=== PATIENT | male | born 1940 | race Hispanic/Latino ===

== ENCOUNTER 2017-01-03 22:32 | Observation (INO) | payer MEDICARE ==
--- NOTE | 2017-01-03 22:51 | ED PDOC ---
Arrival/HPI - General Time Seen by Provider: 01/03/17 22:35 Historian: Patient, Spouse - History of Present Illness Narrative History of Present Illness (Text): 01/03/17 22:51 Daniel Figueroa is a 76 year old male, whose past medical history includes prostate cancer, enlarged aorta, and hypertension, who presents to the Emergency department brought in by EMS accompanied by status post syncopal episode. As per , patient went to a restaurant for dinner tonight and had a syncopal episode after walking to the bathroom. notes patient was very drowsy when she arrived after. Patient states he is unable to remember the episode. Patient denies any chest pain, shortness of breath, nausea, vomiting, diarrhea, back pain, neck pain, headache, or any other complaints. notes patient has a history of syncopal episodes in the past. Time/Duration: Other Symptom Onset: Gradual Symptom Course: Unchanged Activities at Onset: Light Context: Standing, Other (Restaurant) Past Medical History - Provider Review Nursing Documentation Reviewed: Yes Family/Social History - Physician Review Nursing Documentation Reviewed: Yes Family/Social History: Unknown Family HX Allergies/Home Meds Allergies/Adverse Reactions: Allergies No Known Allergies Allergy (Unverified 01/03/17 22:54) Review of Systems - Physician Review All systems were reviewed & negative as marked: Yes - Review of Systems Constitutional: Normal. absent: Fevers Eyes: Normal ENT: Normal Respiratory: Normal. absent: SOB, Cough Cardiovascular: Syncope. absent: Chest Pain Gastrointestinal: Normal. absent: Abdominal Pain, Diarrhea, Nausea, Vomiting Genitourinary Male: Normal. absent: Dysuria, Frequency, Hematuria, Urinary Output Changes Musculoskeletal: Normal. absent: Back Pain, Neck Pain Skin: Normal Neurological: absent: Headache, Dizziness Endocrine: Normal Hemo/Lymphatic: Normal Psychiatric: Normal Physical Exam Vital Signs Reviewed: Yes Vital Signs Temp Pulse Resp BP Pulse Ox 01/03/17 23:59 66 20 127/63 98 01/03/17 22:56 97.7 F 63 18 105/62 94 L 01/03/17 22:47 64 28 H 105/62 92 L Temperature: Afebrile Blood Pressure: Normal Pulse: Regular Respiratory Rate: Normal Appearance: Positive for: Well-Appearing, Non-Toxic, Comfortable Pain Distress: None Mental Status: Positive for: other (Drowsy but easily arousable, oriented x 3) - Systems Exam Head: Present: Atraumatic, Normocephalic Pupils: Present: PERRL Extroacular Muscles: Present: EOMI Conjunctiva: Present: Normal Mouth: Present: Moist Mucous Membranes Neck: Present: Normal Range of Motion Respiratory/Chest: Present: Clear to Auscultation, Good Air Exchange. No: Respiratory Distress, Accessory Muscle Use Cardiovascular: Present: Regular Rate and Rhythm, Normal S1, S2. No: Murmurs Abdomen: Present: Normal Bowel Sounds. No: Tenderness, Distention, Peritoneal Signs Upper Extremity: Present: Normal Inspection. No: Cyanosis, Edema Lower Extremity: Present: Normal Inspection. No: Edema Neurological: Present: GCS=15, CN II-XII Intact, Speech Normal Skin: Present: Warm, Dry, Normal Color. No: Rashes Psychiatric: Present: Oriented x 3, Other (Drowsy but easily arousable) Medical Decision Making ED Course and Treatment: 01/03/17 22:51 Impression: 76 year old male brought in by EMS s/p syncopal episode tonight. Differential Diagnosis included but are not limited to: syncope Plan: -- CT Head w/o contrast -- EKG -- Chest X-ray -- Labs, alcohol level, cardiac enzymes -- Reassess and disposition Progress Notes: Reviewed EKG, NSR at 60 bpm. Inferior infarct. Anteroseptal infarct. No previous EKG available for comparison. 01/03/17 23:28 Reviewed Chest X-ray, shows no acute processes. 01/03/17 23:[address] head, shows: There is atrophy. No intracranial hemorrhage. No intracranial edema. No evidence of infarct. There is partial opacification of the ethmoid sinuses. It could be chronic or alternatively represent acute sinusitis. Clinical correlation is recommended. IMPRESSION: Sinus disease. 01/04/17 00:[address] Andres, covering for Dr. Conde, who is aware and agrees with plan. Pt will go to Telemetry observation for syncope under Dr. Conde's service. Requests Dr. Dubon on consult. - Lab Interpretations Lab Results: 01/03/17 23:15 01/03/17 23:15 Lab Results 01/03/17 23:15: WBC 5.0, RBC 4.69, Hgb 14.3, Hct 41.5 L, MCV 88.5, MCH 30.5, MCHC 34.5, RDW 12.2, Plt Count 172, MPV 9.6 01/03/17 23:15: Alcohol, Quantitative 69 H 01/03/17 23:15: Sodium 135, Potassium 3.4 L, Chloride 99, Carbon Dioxide 24, Anion Gap 15, BUN 11, Creatinine 0.8, Est GFR ( Amer) > 60, Est GFR (Non- Af Amer) > 60, Random Glucose 129 H, Calcium 8.9, Total Bilirubin 0.7, AST 30, ALT 41, Alkaline Phosphatase 55, Lactate Dehydrogenase 438, Total Creatine Kinase 144, Troponin I < 0.01, Total Protein 6.7, Albumin 4.0, Globulin 2.7, Albumin/Globulin Ratio 1.5 01/03/17 23:15: PT 11.8, INR 1.08, APTT 28.7 I have reviewed the lab results: Yes - RAD Interpretation Radiology Orders: 01/03/17 22:54 HEAD W/O CONTRAST [CT] Stat CHEST PORTABLE [RAD] Stat Human Resources Assistant: ED Physician, Radiologist - EKG Interpretation Interpreted by ED Physician: Yes Type: 12 lead EKG - Medication Orders Current Medication Orders: Discontinued Medications Potassium Chloride (K-Dur 20 Meq Er Tab) 20 meq PO STAT STA Stop: 01/04/17 00:26 - Scribe Statement The provider has reviewed the documentation as recorded by the [place] Provider Scribe Attestation: All medical record entries made by the [place] were at my direction and personally dictated by me. I have reviewed the chart and agree that the record accurately reflects my personal performance of the history, physical exam, medical decision making, and the department course for this patient. I have also personally directed, reviewed, and agree with the discharge instructions and disposition. Disposition/Present on Arrival - Present on Arrival Any Indicators Present on Arrival: No History of DVT/PE: No History of Uncontrolled Diabetes: No Urinary Catheter: No History of Decub. Ulcer: No History Surgical Site Infection Following: None - Disposition Have Diagnosis and Disposition been Completed?: Yes Diagnosis: Syncope Disposition: HOSPITALIZED Disposition Time: 01:02 Patient Plan: Observation Condition: STABLE Discharge Instructions (ExitCare): Syncope (ED)
[2017-01-03 23:27] LABS: HEMATOCRIT 41.5 % (42.0-52.0); MEAN CELL VOLUME 88.5 fl (80.0-105.0); MEAN CORPUSCULAR HEMOGLOBIN 30.5 pg (25.0-35.0); MEAN CORPUSCULAR HGB CONC 34.5 g/dl (31.0-37.0); MEAN PLATELET VOLUME 9.6 fl (7.0-11.0); RED CELL DISTRIBUTION WIDTH 12.2 % (11.5-14.5)
[2017-01-03 23:34] LABS: ALKALINE PHOSPHATASE 55 U/L (38-126); ALT/SGPT 41 U/L (7-56); AST/SGOT 30 U/L (17-59); BILIRUBIN,TOTAL 0.7 mg/dL (0.2-1.3); BLOOD UREA NITROGEN 11 mg/dL (7-21); CALCIUM 8.9 mg/dL (8.4-10.5); CARBON DIOXIDE 24 mmol/L (21-33); CHLORIDE 99 mmol/L (98-107); GFR AFRICAN-AMERICAN > 60; GLUCOSE,RANDOM 129 mg/dL (70-110); POTASSIUM 3.4 mmol/L (3.6-5.0); SODIUM 135 mmol/L (132-148); TOTAL PROTEIN 6.7 g/dL (5.8-8.3)
[2017-01-03 23:38] LABS: ALB/GLOB RATIO 1.5 (1.1-1.8); INR 1.08 (0.93-1.08); PARTIAL THROMBOPLASTIN TIME 28.7 Seconds (25.1-36.5)
--- NOTE | 2017-01-03 23:41 | CT ---
EXAM: CT Head Without Intravenous Contrast EXAM DATE/TIME: 01/03/2017 10:54 PM CLINICAL HISTORY: 76 years old, male; Signs and symptoms; Syncope and collapse TECHNIQUE: Axial computed tomography images of the head/brain without intravenous contrast. All CT scans at this facility use one or more dose reduction techniques, viz.: automated exposure control; ma/kV adjustment per patient size (including targeted exams where dose is matched to indication; i.e. head); or iterative reconstruction technique. COMPARISON: No relevant prior studies available. FINDINGS: There is atrophy. No intracranial hemorrhage. No intracranial edema. No evidence of infarct. There is partial opacification of the ethmoid sinuses. It could be chronic or alternatively represent acute sinusitis. Clinical correlation is recommended. IMPRESSION: Sinus disease.
[2017-01-03 23:45] LABS: TROPONIN I < 0.01 ng/mL
[2017-01-04] MEDS ORDERED: Potassium Chloride 20 mEq ER Tab PO STA (00:25)
[2017-01-04 04:29] VITALS: BMI 3979.8
[2017-01-04] MEDS ORDERED: Pneumococcal 23-Valent Vaccine IM ONE (04:29)
[2017-01-04 10:15] LABS: TROPONIN I < 0.01 ng/mL
--- NOTE | 2017-01-04 12:27 | RAD ---
HISTORY: syncope COMPARISON: No prior. FINDINGS: LUNGS: Linear atelectasis at left lung base. PLEURA: No significant pleural effusion identified, no pneumothorax apparent. CARDIOVASCULAR: Normal. OSSEOUS STRUCTURES: No significant abnormalities. VISUALIZED UPPER ABDOMEN: Normal. OTHER FINDINGS: None. IMPRESSION: Left basilar linear atelectasis. Otherwise unremarkable.
--- NOTE | 2017-01-04 14:55 | CARD ---
APPROVED REPORT EKG Measurement Heart [id number] <Conclusion> Normal sinus rhythm Inferior infarct, possibly acute Cannot rule out Anteroseptal infarct, age undetermined Abnormal ECG
--- NOTE | 2017-01-04 18:43 | HP ---
DATE: 01/04/2017 CHIEF COMPLAINT AND HISTORY OF PRESENT ILLNESS: This is a 76-year male, who is coming into the hospital after he had syncopal episode. The patient states that he was at the birthday green party and he does not remember exactly what happened and his next memory was of him being in the emergency room. The patient had a past medical history of prostate cancer and hypertension. The patient states he has had a one episode before of having a syncopal episode and his evaluation was negative. He has no complaints of any fevers or chills. No nausea. No vomiting. No dysuria, frequency or nocturia. No abdominal pain or back pain. REVIEW OF SYSTEMS: All other review of systems are within normal limits. ALLERGIES: NO KNOWN DRUG ALLERGIES. PAST MEDICAL HISTORY: Prostate cancer, hypertension. HOME MEDICATIONS: His meds have been reviewed on the [facility]. FAMILY HISTORY: Noncontributory. SOCIAL HISTORY: No smoking. He drinks socially. PHYSICAL EXAMINATION: VITAL SIGNS: His temperature is 97.3, pulse of 84, blood pressure 119/53, respirations 15, O2 saturation 97%. His blood pressure lying is 147/79, his sitting blood pressure is 154/79, his standing blood pressure 148/90. GENERAL: The patient lying in bed, uncomfortable, and in no acute distress. HEENT: Atraumatic and normocephalic. Anicteric sclerae. Moist mucosa. [place] conjunctivae. No oral lesions. NECK: No JVD, anterior and posterior adenopathy, thyromegaly, or bruits. CARDIOVASCULAR: S1 and S2 regular. No murmur, rubs, or gallop. LUNGS: Clear to auscultation bilaterally. No wheezes, rales, or rhonchi. ABDOMEN: Bowel sounds are positive. Soft, nontender and nondistended. No hepatosplenomegaly. No rebound and no guarding NEUROLOGIC: No facial asymmetry. Tongue is midline. No uvula deviation. Power is 5/5 upper extremity and lower extremity. Sensation intact in upper extremity and lower extremity. PSYCHIATRIC: She is awake, alert and oriented x3. No anxiety or depression. She has normal affect. GENITOURINARY: No CVA tenderness. VASCULAR: 2+ pulses in the carotid pulses and pedal pulses. SKIN: No erythema or nodules SPINE: Shows normal curvature. EXTREMITIES: No cyanosis and clubbing, no edema. LABORATORY DATA: I have been reviewed white count of 5.0, hemoglobin is 14.3. Potassium is 3.4, troponin is 0.01 x2. Toxicology shows an alcohol level of 69. IMAGING: EKG shows sinus rhythm at 69. QTC is 446. CT of the head done show sinus disease. His opacification of the ethmoid sinus. ASSESSMENT: 1. Syncope. 2. Hypokalemia. 3. Prostate cancer. 4. Hypertension. PLAN: The patient is going to be admitted to the hospital. He has syncopal episode, I will get Cardiology and Neurology to see the patient. He is on Lipitor for his dyslipidemia. He is going to be on aspirin. He is on metoprolol. He is possibly going to need an echo and stress test. He is on heart-healthy diet. Currently, he has no symptoms. He is feeling well. He does have alcohol in his system, he says he had drinks well, he was at his friend's birthday green party. Matias Andres MD
[2017-01-04 19:14] LABS: TROPONIN I < 0.01 ng/mL
--- NOTE | 2017-01-05 00:19 | CON ---
DATE: HISTORY OF PRESENT ILLNESS: This is a 76-year-old white male with past medical history of prostate cancer, hypertension, and the patient was having dinner with friends in [place] and went to bathroom and passed out before reaching the bathroom and leaned against the wall and called the ambulance and brought him here. The patient does not remember any of these things and opened eyes in the ER. No tongue bite. No urinary incontinence. is at bedside and she has been saying that in past few years he had 2 to 3 episodes of syncope, some of them vasovagal. PAST MEDICAL HISTORY: Hypertension and prostate cancer. ALLERGIES: NO KNOWN DRUG ALLERGY. SOCIAL HISTORY: He does not smoke and does not drink. REVIEW OF SYSTEMS: Ten-point review of system was normal except atrophy of both FDI muscles of both hands. PHYSICAL EXAMINATION VITAL SIGNS: Blood pressure 119/53 and blood pressure lying was 147/79, and standing 148/90. HEENT: Normocephalic and atraumatic. NECK: Supple. NEUROLOGIC: Alert, awake, and oriented x3. No aphasia. Cranial nerves II to XII are tested. Pupils reactive. EOM intact. Visual barclay full. No facial asymmetry. Tongue in the midline. Motor examination, moves all the extremities equally. Tone normal. Deep tendon reflexes 1+. Both plantars are downgoing. Sensory appears intact. Cerebellar, gait deferred. IMPRESSION: Syncope, rule out seizure, though less likely and history of prostate cancer, hypokalemia, and hypertension. Workup in progress, we ordered EEG and MRI of the head with and without gadolinium and carotid Doppler. Further management above tests. Jorge Norris MD
[2017-01-05 06:40] VITALS: BP 138/74; TEMP 97.5
[2017-01-05 07:00] LABS: BASO # 0.02 K/mm3 (0.0-2.0); BASO % 0.5 % (0.0-3.0); EOS # 0.2 (0.0-0.7); EOS % 3.6 % (1.5-5.0); GRAN # 2.87 (1.4-6.5); GRAN % 65.4 % (50.0-68.0); HEMATOCRIT 43.6 % (42.0-52.0); LYMPH % 22.8 % (22.0-35.0); MEAN CELL VOLUME 89.5 fl (80.0-105.0); MEAN CORPUSCULAR HGB CONC 33.5 g/dl (31.0-37.0); MEAN PLATELET VOLUME 9.5 fl (7.0-11.0); MONO # 0.3 (0.1-0.6); MONO % 7.7 % (1.0-6.0); RED CELL DISTRIBUTION WIDTH 12.3 % (11.5-14.5); WHITE BLOOD COUNT 4.4 10^3/ul (4.5-11.0)
[2017-01-05 07:41] LABS: ALB/GLOB RATIO 1.4 (1.1-1.8); ALKALINE PHOSPHATASE 60 U/L (38-126); ALT/SGPT 44 U/L (7-56); AST/SGOT 30 U/L (17-59); BLOOD UREA NITROGEN 13 mg/dL (7-21); CALCIUM 8.8 mg/dL (8.4-10.5); CARBON DIOXIDE 33 mmol/L (21-33); CHLORIDE 102 mmol/L (98-107); CHOLESTEROL 102 mg/dL (130-200); GFR AFRICAN-AMERICAN > 60; GLUCOSE,RANDOM 111 mg/dL (70-110); POTASSIUM 3.9 mmol/L (3.6-5.0); SODIUM 140 mmol/L (132-148); TOTAL PROTEIN 6.7 g/dL (5.8-8.3)
[2017-01-05] MEDS ORDERED: Gadodiamide 287 MG/ML VIAL (15ML) IV ONE (08:50)
--- NOTE | 2017-01-05 09:00 | CON ---
DATE: 01/04/2017 REASON FOR CONSULTATION: Syncope. BRIEF CLINICAL HISTORY: This is a 76-year-old male with past medical history significant for hypertension and prostate cancer, status post radiation. The patient after the radiation feels funny sensation in the stomach records and information manager, then he drinks coffee and chocolate and feels better. Yesterday, the patient was in birthday green party and had to drink couple of drinks and then pass out. No recollection. Denies any chest pain, shortness of breath, or any palpitation at that time, but claims that recently he get funny sensation in the chest, although complained of mild dyspnea on exertion. PAST MEDICAL HISTORY: Significant for hypertension and prostate CA, status post radiation. PAST SURGICAL HISTORY: Significant for appendectomy as a child, also the patient had bilateral testicles were intraabdominal and did not descend, so operation was done possibly for placement of both testicles in the scrotum at younger age. FAMILY HISTORY: Noncontributory. The patient had 8 siblings. No history of coronary artery disease. SOCIAL HISTORY: Denies any smoking, but used to drink alcohol socially. REVIEW OF SYSTEMS: As per HPI. The patient states that he had cancer therapy treatment with a beam radiation and after that the patient had a funny sensation records and information manager and has to take chocolate and drink chocolate and coffee and then feels better. CURRENT MEDICATIONS: The patient was taking losartan 25 mg daily, bisoprolol 5 mg daily, and atorvastatin 40 mg daily. PHYSICAL EXAMINATION: VITAL SIGNS: As follows: Temperature afebrile, heart rate 84, and blood pressure 119/53. HEENT: PERRLA. Extraocular muscles are intact. NECK: Supple. No carotid bruits or thyromegaly. CHEST: Clear to auscultation. HEART: S1 and S2 regular. ABDOMEN: Soft. EXTREMITIES: Clubbing and cyanosis negative. LABORATORY DATA: Blood work up as follows; WBC 5.9, hemoglobin 14, hematocrit 41.5, and platelet count 172. Chemistry shows sodium of 135, potassium of 3.4, chloride 94, carbon dioxide 15, anion gap of 11, BUN 11 and creatinine 1.1 Troponin 0.041, negative. Blood alcohol level 69. IMPRESSION: Status post syncope, possibly secondary to alcohol related, cannot rule out underlying coronary artery disease. The patient complained that recently had some chest pain, though not chest pain yesterday. We will do echo to assess LV function, rule out structural heart disease, stress test, lipid profile, TSH, and hemoglobin A1c. Further recommendation as per hospital course. We will follow with you. Thank you Dr. Conde for providing us the opportunity in taking care of the patient, Daniel Bee. David Dubon MD MTDD
--- NOTE | 2017-01-05 09:55 | MRI ---
PROCEDURE: MRI BRAIN WITH AND WITHOUT CONTRAST HISTORY: syncopy COMPARISON: Comparison is made to the previous CT dated 01/03/2017 TECHNIQUE: Multiplanar, multisequence MR images of the brain were obtained with and without intravenous contrast enhancement. FINDINGS: HEMORRHAGE: None DWI: No evidence of an acute or early subacute infarction. BRAIN PARENCHYMA: No mass,mass effect or edema. Mild atrophy is noted. ENHANCEMENT: No abnormal intracranial enhancement. VENTRICLES: Unremarkable. No hydrocephalus. CRANIUM: Unremarkable. ORBITS: Grossly unremarkable. PARANASAL SINUSES/MASTOIDS: Mild mucosal thickening noted at the maxillary ethmoid and sphenoid sinuses. VASCULAR SYSTEM: Skull base flow voids intact. OTHER FINDINGS: None . IMPRESSION: No evidence of acute pathology in the brain. No evidence of enhancing mass lesion mass effect or midline shift. Mild atrophy. Mild mucosal thickening in the paranasal sinuses.
--- NOTE | 2017-01-05 09:55 | US ---
PROCEDURE: Bilateral carotid artery duplex ultrasound HISTORY: Carotid stenosis syncope. PHYSICIAN(S): Luiz Copeland MD. TECHNIQUE: Duplex sonography and color-flow Doppler were used to evaluate the carotid bifurcations and limited segments of the vertebral arteries bilaterally. FINDINGS: There is mild smooth heterogeneous plaque noted at the carotid bifurcations bilaterally. The peak systolic velocity in the proximal right internal carotid artery is 79 cm/sec. This corresponds to a 20 to 39% proximal right ICA stenosis. Normal systolic velocities are noted in the proximal right external carotid artery. There is antegrade flow in the right vertebral artery. The peak systolic velocity in the proximal left internal carotid artery is 77 cm/sec. This corresponds to a 20 to 39% proximal left ICA stenosis. Normal systolic velocities are noted in the proximal left external carotid artery. There is antegrade flow in the left vertebral artery. IMPRESSION: 1. Bilateral 20-39% proximal ICA stenoses. 2. Antegrade flow in both vertebral arteries.
[2017-01-05 10:15] VITALS: O2SAT 94
[2017-01-05 14:33] VITALS: PULSE 82; RESP 29
--- NOTE | 2017-01-05 15:34 | CARD ---
APPROVED REPORT Protocol: EL Test Type: Sestamibi Stress Test Attending Physician: Dr. David Smith Referring Physician: Dr. Andre Conde Test Indications: Chest Pain Height:6 ft 0 in Weight:203lbs Medications: ASPIRIN, LIPITOR, LOPRESSOR Medical History: 76 YEAR OLD MALE WITH A H/O HTN AND PROSTATE CA Target HR: 146 bpm Resting ECG: RSR. Resting Heart Rate: 86 bpm Resting Blood Pressure: 150/90mmHg Submaximum (85%): 124 bpm POST EXERCISE Reason for Termination: Fatigue Target HR: No Max HR: 137 bpm 102% of Maximum Predicted HR: 146 bpm Exercise duration: 06:20 min:sec, 3 Stage Exercise capacity: 7.4METs Max Blood Pressure: 162/76mmHg Blood Pressure response to exercise: resting hypertension - appropriate response Heart Rate response to exercise: appropriate Chest Pain: No, none Angina index: 0 Arrhythmia: No, none ST Change: No, none Deviation: 0 mm TEST SUMMARY [id number]:[id number]/.0. [id number]:020.00.01.071/.0. PRETESTHYPERV.20:[id number]/90.0. EXERCISESTAGE 103:001.710.04.6114/.2. EXERCISESTAGE 203:[id number]/76.3. EXERCISESTAGE 300:[id number]/76.5. [id number]:[id number]/76.0. INTERPRETATION Stress EKG Conclusion: FMYOVIEW NUCLEAR STRESS TEST STOPPED AFTGER 6 MINUTES AND 20 SECONDS OF EL PROTOCOL DUE TO FATIGUE. PATIENT ACHIEVED 93% OF PREDICTED HEART RATE. NO CHEST PAIN. NO ST-T CHANGES. NUCLEAR SCAN REPORT PENDING. Signed by David Smith Electronically Approved: 01/05/2017 12:59:14 EXAM: Myocardial Perfusion REST/STRESS Stress Test Type: Exercise Treadmill Imaging Protocol Rest Spect myocardial perfusion imaging was performed in supine position 45 minutes following the injection of 10.3 mCi of Tc-99 Myoview. At peak stress, the patient was injected intravenously with 30.5mCi of Tc-99 tetrofosmin after an exercise time of 6 minutes and 20 seconds. Gated Stress Spect was performed 65 minutes after intravenous Tc-99 Myoview injection. The images were gated to evaluate regional wall motion and calculate ventricular ejection fraction.Images were reconstructed using backfilter projection method in short horizontal and verticle long axis. Spect slices were generated. LV Perfusion The quality of the study is good. The left ventricle is normal in size. The right ventricle is unremarkable. The lung uptake is normal. The distribution of tracer reveals moderately and diffusely decreased perfusion in the inferior wall on the stress study. The remainder of the LV myocardium is unremarkable. The rest myocardial perfusion study shows no significant change. Wall Motion Wall motion study shows good contractility of the left ventricle. LVEF = 72%. Conclusion 1. Essentially normal SPECT myocardial perfusion study. 2. Fixed, inferior defect is most likely due to diaphrgmatic attenuation. 3. Normal gated wall motion and thicknening of the left ventricle.
--- NOTE | 2017-01-05 16:12 | CP.PCM.PN ---
<Kendra Villalobos - Last Filed: 01/05/17 16:10> Subjective - Date & Time of Evaluation Date of Evaluation: 01/05/17 Time of Evaluation: 13:00 - Subjective Subjective: PGY-2 Neruology progress note for 's service Patienty seen and examined at bedside. No acute distress. Patient has no complaints. He denies any episodes of dizziness in the hospital. He denies headache, chest pain, sob. Tolerating diet. Objective - Vital Signs/Intake and Output Vital Signs (last 24 hours): Temp Pulse Resp BP Pulse Ox 97.5 F L 82 29 H 138/74 94 L 01/05/17 06:00 01/05/17 14:30 01/05/17 14:30 01/05/17 06:00 01/05/17 10:00 Intake and Output: 01/05/17 01/05/17 06:59 18:59 Intake Total 200 Output Total 550 Balance -350 - Medications Medications: Current Medications Aspirin (Ecotrin) 81 mg PO DAILY [facility] Last Admin: 01/05/17 13:56 Dose: 81 mg Atorvastatin Calcium (Lipitor) 40 mg PO DAILY [facility] Last Admin: 01/05/17 13:56 Dose: 40 mg Metoprolol Tartrate (Lopressor) 25 mg PO BID [facility] Last Admin: 01/05/17 11:17 Dose: Not Given - Labs Labs: 01/05/17 06:30 01/05/17 06:30 PT 11.8 SECONDS (9.4-12.5) 01/03/17 23:15 INR 1.08 (0.93-1.08) 01/03/17 23:15 APTT 28.7 Seconds (25.1-36.5) 01/03/17 23:15 - Constitutional Appears: Well, No Acute Distress - Head Exam Head Exam: ATRAUMATIC, NORMAL INSPECTION, NORMOCEPHALIC - Eye Exam Eye Exam: EOMI, Normal appearance - ENT Exam ENT Exam: Mucous Membranes Moist - Respiratory Exam Respiratory Exam: Clear to Ausculation Bilateral. absent: Wheezes, Respiratory Distress, NORMAL BREATHING PATTERN - Cardiovascular Exam Cardiovascular Exam: REGULAR RHYTHM. absent: Tachycardia, Murmur - GI/Abdominal Exam GI & Abdominal Exam: Soft, Normal Bowel Sounds. absent: Distended, Firm, Tenderness, Rebound - Extremities Exam Extremities Exam: Normal Inspection. absent: Pedal Edema, Tenderness - Neurological Exam Neurological Exam: Alert, Awake, CN II-XII Intact, Motor Sensory Deficit, Oriented x3 Neuro motor strength exam: Left Upper Extremity: 5, Right Upper Extremity: 5, Left Lower Extremity: 5, Right Lower Extremity: 5 - Psychiatric Exam Psychiatric exam: Normal Affect, Normal Mood - Skin Skin Exam: Dry, Intact, Normal Color, Warm Assessment and Plan - Assessment and Plan (Free Text) Assessment: 76 yo male with PMH of prostates cancer, HTN, presented to ED after syncopal episode at a restuarant. most likely due to tranist cerebral hypoperfusion vs seizure 1. syncopal episode 2. HTN 3. hypokalemia 4. prostate cancer - MRI compared with previoud MRI report, no acute changes - EEG order to help r/o seizure - orthostatic negative - AED not recommended unless EEG is positive - continue cardiac work up Patient seen and case discussed/reviewed with attending, Dr. Norris <Karlos Norris - Last Filed: 01/05/17 18:03> Objective - Vital Signs/Intake and Output Vital Signs (last 24 hours): Temp Pulse Resp BP Pulse Ox 97.5 F L 82 29 H 138/74 94 L 01/05/17 06:00 01/05/17 14:30 01/05/17 14:30 01/05/17 06:00 01/05/17 10:00 Intake and Output: 01/05/17 01/05/17 06:59 18:59 Intake Total 200 Output Total 550 Balance -350 - Medications Medications: Current Medications Aspirin (Ecotrin) 81 mg PO DAILY [facility] Last Admin: 01/05/17 13:56 Dose: 81 mg Atorvastatin Calcium (Lipitor) 40 mg PO DAILY [facility] Last Admin: 01/05/17 13:56 Dose: 40 mg Metoprolol Tartrate (Lopressor) 25 mg PO BID [facility] Last Admin: 01/05/17 11:17 Dose: Not Given - Labs Labs: 01/05/17 06:30 01/05/17 06:30 PT 11.8 SECONDS (9.4-12.5) 01/03/17 23:15 INR 1.08 (0.93-1.08) 01/03/17 23:15 APTT 28.7 Seconds (25.1-36.5) 01/03/17 23:15 Attending/Attestation - Attestation I have personally seen and examined this patient.: Yes I have fully participated in the care of the patient.: Yes I have reviewed all pertinent clinical information, including history, physical exam and plan: Yes
--- NOTE | 2017-01-05 18:06 | PN ---
DATE: 01/05/2017 REASON FOR CONSULTATION: Syncope. SUBJECTIVE: The patient denies any chest pain, shortness of breath or any palpitation. PHYSICAL EXAMINATION: VITAL SIGNS: Temperature afebrile, heart rate 82 and blood pressure 138/74. HEENT: PERRLA intact. NECK: Supple. No carotid bruit or thyromegaly. CHEST: Clear to auscultation. HEART: S1 and S2 regular. ABDOMEN: Soft. EXTREMITIES: Clubbing and cyanosis negative. LABORATORY DATA: Blood workup as follows: WBC 4.2, hemoglobin 14, hematocrit 43.6 and platelet count 150. Chemistry; sodium 140, potassium 3.9, chloride 102, carbon dioxide 33, anion gap of 9, BUN 13 and creatinine 0.8. Troponin 0.01. IMPRESSION: Syncope, shortness of breath, hypertension, rule out coronary artery disease, multiple risk factors for coronary artery disease. Suggest echocardiogram and a stress test. Further recommendation after the stress test. We will follow with you. Thank you Dr. Conde for providing me the opportunity in taking care of the patient, Daniel Figueroa. David Dubon MD cc: Andre Conde MD
--- NOTE | 2017-01-05 19:22 | CARD ---
APPROVED REPORT EXAM: Two-dimensional and M-mode echocardiogram with Doppler and color Doppler. INDICATION Chest Pain 2D DIMENSIONS IVSd1.3 (0.7-1.1cm)LVDd3.4 (3.9-5.9cm) PWd1.2 (0.7-1.1cm)LVDs2.4 (2.5-4.0cm) FS (%) 30.5 %LVEF (%)59.2 (>50%) M-Mode DIMENSIONS Aortic Root4.60 (2.2-3.7cm)Aortic Cusp Exc.2.30 (1.5-2.0cm) Aortic Valve AoV Peak Vmzdnnzk265.0cm/Linh Peak GR.8mmHgLVOT Peak Hzbadaxr302.0cm/s LVOT VTI15.40cmAI P 1/2 Jcnv138en Mitral Valve MV E Idzxetax57.9cm/sMV A Sikiambl43.3cm/sE/A ratio0.5 TDI Lateral E' Peak V7.91cm/sMedial E' Peak V5.57cm/sE/Lateral E'5.9 E/Medial E'8.4 Pulmonary Valve PV Peak Xzxvjoto26.7cm/sPV Peak Grad.4mmHg Tricuspid Valve TR Peak Bahrtqmu736me/sRAP [id number] Peak Gr.24mmHg [id number] LEFT VENTRICLE The left ventricle is normal size. There is borderline to mild concentric left ventricular hypertrophy. Proximal septal thickening is noted. The left ventricular function is normal.Ef-55-60% There is normal LV segmental wall motion. Transmitral Doppler flow pattern is Grade III-reversible restrictive diastolic dysfunction. No left ventricle thrombus noted on this study. There is no ventricular septal defect visualized. There is no left ventricular aneurysm. There is no mass noted in the left ventricle. RIGHT VENTRICLE The right ventricle is normal size. There is normal right ventricular wall thickness. The right ventricular systolic function is normal. ATRIA The left atrium size is normal. The right atrium size is normal. The interatrial septum is intact with no evidence for an atrial septal defect. AORTIC VALVE The aortic valve is thickened but opens well. The aortic valve is moderately sclerotic. There is mild aortic regurgitation. There is no aortic valvular stenosis. There is no aortic valvular vegetation. MITRAL VALVE The mitral valve is thickened but opens well. Mitral annular calcification is mild. Mitral regurgitation is trace. There is no mitral valve stenosis. There is no evidence of mitral valve prolapse. TRICUSPID VALVE The tricuspid valve leaflets are thickened , but open well. There is trace to mild tricuspid regurgitation.RVSP-34 mmof hg. There is no tricuspid valve stenosis. There is no tricuspid valve prolapse or vegetation. PULMONIC VALVE The pulmonary valve is normal in structure. There is no pulmonic valvular regurgitation. There is no pulmonic valvular stenosis. GREAT VESSELS The aortic root is normal in size. The ascending aorta is normal in size. The pulmonary artery is normal. The IVC is normal in size and collapses >50% with inspiration. PERICARDIAL EFFUSION There is no pleural effusion. There is no pericardial effusion. <Conclusion> The left ventricle is normal size. There is borderline to mild concentric left ventricular hypertrophy. Proximal septal thickening is noted. The left ventricular function is normal.Ef-55-60% There is mild aortic regurgitation. Mitral regurgitation is trace. There is trace to mild tricuspid regurgitation.RVSP-34 mmof hg. The IVC is normal in size and collapses >50% with inspiration. There is no pericardial effusion.
--- NOTE | 2017-01-06 03:37 | DS ---
HISTORY OF PRESENT ILLNESS: The patient is a 76-year-old seen in Cardiology Department while having stress test. History is also taken from who was at the bedside and states he is very sensitive for vasovagal. The patient actually resides in [facility] and she was here in [place] in a [place]. When he got up from the chair, he was walking to the bathroom, he felt very dizzy, and almost passed out. Did not lose consciousness, held onto the wall and slumped down. He was brought to the ER. He has multiple episode on different occasions, but all the workup has been negative. PAST MEDICAL HISTORY: Significant for hypertension and hyperlipidemia. ALLERGIES: HE IS NOT ALLERGIC TO ANY MEDICATIONS. PHYSICAL EXAMINATION: GENERAL: He is awake, alert, oriented, and communicative. VITAL SIGNS: He is afebrile, pulse 82, respirations 18, and blood pressure 138/74. LUNGS: Bilateral good airflow. No rhonchi or crackles. HEART: S1 and S2 audible. ABDOMEN: Soft and nontender. No rebound. No guarding. NEUROLOGIC: He is awake, alert, oriented, communicative, and ambulatory. LABORATORY DATA: WBC is 4.4, hemoglobin 14, hematocrit 43, and platelets 150. Chemistry; sodium 140, potassium 3.9, chloride 102, CO2 of 33, BUN 13, creatinine 0.8, and blood sugar of 111. LFTs are within normal limits. His total cholesterol is 102. Alcohol level is 69. His MRI of the brain is unremarkable. Carotid Doppler and stress test is also unremarkable. ASSESSMENT: 1. Near syncope versus vasovagal. 2. Hypertension. 3. Hyperlipidemia. PLAN: The patient was evaluated by outside plant supervisor and neurologist, doing well. Post stress test, he seems to be stable. He will be discharged home and he will resume his medications as prior to admission include Zebeta, atorvastatin, and Cozaar 25 daily. He will follow up with his PMD in [place]. Andre Conde MD
== END 2017-01-05 18:37 | disposition home or self-care (01) ==
LOC: ED 22:32 → ERH 01-04 00:58 → CCU 01-04 02:44
PROVIDERS: ADMIT Internal Medicine; ATTEND Internal Medicine
DX: R55 Syncope and collapse (principal); E78.5 Hyperlipidemia, unspecified; E87.6 Hypokalemia; I10 Essential (primary) hypertension; Z85.46 Personal history of malignant neoplasm of prostate; Z92.3 Personal history of irradiation; R40.2412 Glasgow coma scale score 13-15, at arrival to emergency department; Z90.49 Acquired absence of other specified parts of digestive tract
CPT/HCPCS: 70450; 70553; 71010; 78452; 80053; 80061; 82550; 83036; 83615; 83735; 84100; 84443; 84484; 85025; 85027; 85610; 85730; 87081; 93005; 93017; 93306; 93880; 95812; 99285; A9502; A9579; G0378; G0480